=== PATIENT | female | born 1980 | race Caucasian/White ===

== ENCOUNTER 2022-01-21 16:36 | Emergency (ER) | payer MEDICARE, SELFPAY ==
[2022-01-21 16:45] VITALS: BP 102/66; PULSE 89; RESP 18; TEMP 36.4; O2SAT 100
--- NOTE | 2022-01-21 16:58 | ED.FEMALEGU ---
HPI - Female Genitourinary General Chief complaint: Urogenital-Female Stated complaint: Female Urogenital Source: patient History of Present Illness HPI Narrative: This is a 41 year old female that came in with dysuria and frequency and hesitancy ithe urination. Patient brought three grown adults in the room with her. Patient symptoms started today and she has not had any nausea vomiting , fever or flank pain. Patient denies taking anything for her symptoms . I had a discussion and asked patient if she wanted me to talk to her in front of these people and she agreed to have the conversation in front of the three other adults MD elicited complaint: dysuria Related Data Home Medications Medication Instructions Recorded Confirmed dicyclomine 10 mg capsule 10 mg PO BID PRN Cramps 03/24/21 01/21/22 duloxetine 20 mg capsule,delayed 20 mg PO DAILY 03/24/21 01/21/22 release (Cymbalta) loratadine 10 mg tablet (Claritin) 10 mg PO DAILY 03/24/21 01/21/22 omeprazole 40 mg capsule,delayed 40 mg PO DAILY 03/24/21 01/21/22 release Allergies Allergy/AdvReac Type Severity Reaction Status Date / Time naproxen [From Aleve] Allergy Severe Anaphylaxis Verified 01/21/22 16:39 penicillin G Allergy Severe Swelling Verified 01/21/22 16:58 of Lip/Tongue/Throat Penicillins Allergy Severe Swelling Verified 01/21/22 16:58 of Lip/Tongue/Throat levofloxacin AdvReac Mild Itching Verified 01/21/22 16:39 Sulfa (Sulfonamide AdvReac Mild Hives Verified 01/21/22 16:39 Antibiotics) Review of Systems Review of Systems: buring with urination All systems reviewed & are unremarkable except as noted in HPI and below [facility] Past Medical History Medical History Shoulder pain Family History Family History Other Family history of malignant neoplasm Family history of migraine headaches Social History Social History Smoking status: Never smoker Second hand tobacco smoke exposure: No Alcohol intake: current Substance use: current Substance use type: marijuana Other substance usage details: smokes marijuana 2-3x day Last use: 03/24/2021 Comments At time as signature, I have reviewed and agree with nursing past medical, social, surgical and family history. Please see nursing chart for further information. There is no relevant family history pertinent to the presenting complaint. We will Exam Narrative: Neuro: Alert and orientented RESP : Ease of rise and fall of chest wall, no respiratory distress abd soft and not distened no flank pain extremity range of motion within normal limits Course Course Emergency Course: no nitrates, positive leukocytes, positive blood Level of Care: Express Care Visit Vital Signs Vital signs: Vital Signs Temperature 97.6 F 01/21/22 16:45 Pulse Rate 89 01/21/22 16:45 Respiratory Rate 18 01/21/22 16:45 Blood Pressure 102/66 01/21/22 16:45 Pulse Oximetry 100 01/21/22 16:45 Oxygen Delivery Room Air 01/21/22 16:45 Temperature 97.6 F 01/21/22 16:45 Pulse Rate 89 01/21/22 16:45 Respiratory Rate 18 01/21/22 16:45 Blood Pressure 102/66 01/21/22 16:45 Pulse Oximetry 100 01/21/22 16:45 Oxygen Delivery Room Air 01/21/22 16:45 MDM - Female Genitourinary Differential Diagnosis Differential diagnosis: Likely urinary tract infection, cervicitis, vaginitis, cystitis and dysmenorrhea Lab Data Labs: Urine Glucose Negative Reference Range: Negative Urine Bilirubin Negative Reference Range: Negative Urine Ketone Negative Reference Range: Negative Urine Specific [place]
== END 2022-01-21 17:09 | disposition home or self-care (01) ==
PROVIDERS: Emergency Provider Nurse Practitioner Family; PCP Family Medicine
DX: N30.90 Cystitis, unspecified without hematuria (principal)
CPT/HCPCS: 81003; 87086; 99213; G0463

== ENCOUNTER 2024-10-20 13:15 | Outpatient (CLI) | payer MEDICARE, SELFPAY ==
--- OUTSIDE RECORDS SUMMARY | 2024-10-20 13:20 | XMS_ITS | Patient Health Record ---
Author Organization [facility] Address [address] [place] [address] Care Team Providers Care Engineer Systems Name Role Phone Hieu Morton Primary Care Provider [phone] [employer], [facility] Unavailable U navailable Allergies Allergen (clinical drug ingredient) Drug/Non Drug Allergy documented on EMR Reaction Allergy Type Onset Date Status Aleve Unknown Drug Allergy Active Doxycycline (Rosacea) hives Drug Allergy Active Levaquin Unknown Drug Allergy Active PENICILLIN Unknown Drug Allergy Active SULFA Unknown Drug Allergy Active Reason For Referral No Information Medications Medication SIG (Take, Route, Frequency, Duration) Notes Start Date End Date Status Claritin 10 MG 1 tablet Orally Once a day Active Loryna 3-0.02 MG 1 tablet Orally Once a day Active busPIRone HCl 5 MG 1 tablet Orally Twic e a day; Duration: 30 days Active HYDROcodone-Acetaminophen 10-325 MG 1 tablet as needed Orally every 6 hrs Not-Taking PriLOSEC OTC 20 MG 1 tablet Orally Once a day Active hydrOXYzine Pamoate 25 MG 1 capsule as n eeded Orally twice a day; Duration: 30 days Active Cymbalta 20 MG 1 capsule Orally twi ce a day; Duration: 30 days Active Social History Tobacco Use: Social History Observation Description Date Details (start date - stop date) Never Smoker NA - NA Tobacco Control (Standard) Question Answer Notes Tobacco use: Nonsmoker Problems Problem Type SNOMED Code ICD Code Onset Dates Problem Status W/U Status Risk Notes Problem Mild major depression, single episode (69487861) Major depressive disorder, single episode, mild (F32.0) Active confirmed Problem Generalized anxiety disorder (30329168) Generalized anxiety disorder (F41.1) Active confirmed Vital Signs Heart Rate 102 /min 03/18/2024 Respiratory Rate 16 /min 03/18/2024 Oximetry 98 % 03/18/2024 Blood pressure diastolic 68 mm Hg 03/18/2024 Height 66 in 03/18/2024 Blood pressure systolic 112 mm Hg 03/18/2024 Weight 141.6 lbs 03/18/2024 BMI 22.85 kg/m2 03/18/2024 Encounters Encounter Location Date Provider Diagnosis [address], [place] [address] 12/04/2023 Arif Habib [address] [address] 02/05/2024 Arif Habib [address] [address] 03/05/2024 Arif Habib [address] [address] 03/11/2024 Arif Habib Generalized anxiety disorder F41.[address] [address] 07/14/2024 Arif Habib [address] [address] 08/27/2024 Arif Habib Generalized anxiety disorder F41.[address] [address] 03/18/2024 Arif Habib Generalized anxiety disorder F41.[address] [address] 07/15/2024 Arif Habib Generalized anxiety disorder F41.[address] [address] 09/02/2024 Arif Habib Generalized anxiety disorder F41.[address] [address] 12/04/2023 Arif Habib Generalized anxiety disorder F41.1 Assessments Encounter Date Diagnosis (ICD Code) Assessment Notes Treatment Notes Treatment Clinical Notes Section Notes 12/04/2023 Generalized anxiety disorder (ICD-10 - F41.1) 03/11/2024 Generalized anxiety disorder (ICD-10 - F41.1) 03/18/2024 Generalized anxiety disorder (ICD-10 - F41.1) side effects discussed. Increase Cymbalta 20 mg BID. Add Vistaril PRN for anxiety 07/15/2024 Generalized anxiety disorder (ICD-10 - F41.1) side effects discussed. Continue Cymbalta 20 mg BID & Vistaril PRN for anxiety . Add Buspr 5 mg BID for anxiety. 09/02/2024 Generalized anxiety disorder (ICD-10 - F41.1) side effects discussed. Continue Cymbalta 20 mg BID & Vistaril PRN for anxiety . Continue Buspr 5 mg BID for anxiety. 08/27/2024 Generalized anxiety disorder (ICD-10 - F41.1) 12/04/2023 Other Side effects discussed. Continue Cymbalta Plan Of Treatment No Information Insurance Providers Payer Name Payer Address Payer Phone Subscriber Number Group Number Insured Name Patient Relationship to Insured Coverage Start Date Coverage End Date MEDICARE PART A [address] [place] [phone] [id number] Roxanna Conner Self - patient is the insured 2 Medical (General) History Surgical History Surgery Date(Month/Year) PARTIAL HYSTERECTOMY 08/2013
--- OUTSIDE RECORDS SUMMARY | 2024-10-20 13:20 | XMS_ITS | Clinical Summary ---
Author Organization [facility] Address [address] [place] [id number] Care Team Providers Care Hide Curer Name Role Phone Tanya Dorsey MD Primary Care Provider [phone] Social History Tobacco Use Types Packs/Day Years Used Date Smoking Tobacco: Never Assessed Comments No Sex and Gender Information Value Date Recorded Sex Assigned at Not on file Legal Sex Female 9:09 AM CDT Gender Identity Not on file Sexual Orientation Not on file Plan of Treatment Health Maintenance Due Date Last Done Comments Cervical Cancer Screening Pa p Smear (Age 30 to 64) Every 3 Years 1978 Colorectal Cancer Screening Colonoscopy (10 Years) 1978 Annual Physical 1981 Hepatitis C 1996 DTaP, Tdap and Td Vaccines ( 1 - Tdap) 1997 Hepatitis B Vaccines (1 of 3 - 19+ 3-dose series) 1997 Cervical Cancer Screening Pa p with HPV Testing (Age 30 to 64) Every 5 Years 2008 Cervical Cancer Screening wi th HPV 2008 COVID-19 Vaccine (2023-2 5 season) 2023 Mammogram Screening 04/14/2026 04/14/2024, 04/06/2023, 12/30/2021 Meningococcal B Vaccine Aged Out No l onger eligible based on patient's age to complete this topic Meningococcal Vaccine Aged Out No vidal anya eligible based on patient's age to complete this topic Pneumococcal Vaccine: Pediatrics (0 to 5 Years) and At-Risk Patients (6 to 49 Years) Aged Out No longer eligible b ased on patient's age to complete this topic RSV Immunizations Under 20 Months Aged Out No longer eligible b ased on patient's age to complete this topic Procedures Procedure Name Priority Date/Time Associated Diagnosis Comments MG SCREENING W ADAM STEFFANIE DIGI Routine 04/14/2024 1:12 PM CHIEF SERVICE OBSERVER Encounter for screening mammogram for malignant neoplasm of breast from Last 3 Months or Most Recently Relevant to Health Maintenance Results * MG SCREENING W ADAM STEFFANIE DIGI (04/14/2024 1:12 PM CHIEF SERVICE OBSERVER) Anatomical Region Laterality Modality Breast Bilateral Mammography 04/14/2024 1:40 PM CHIEF SERVICE OBSERVER Impressions 04/14/2024 1:41 PM CHIEF SERVICE OBSERVER ===== IMPRESSION: ===== 1. Stable mammographic appearance with no new findings to suggest malignancy in either breast. Assessment: ACR BI-RADS 1 - NEGATIVE Recommendation: 1:Routine Screening Bilateral Comments: Ordered By: CARLOS ROSENTHAL Interpreted By: Dustin Lucas MD, 04/14/2024 1:40 PM Narrative 04/14/2024 1:41 PM CHIEF SERVICE OBSERVER [facility] [place] [id number] Examination: Digital bilateral screening mammogram with 3D Tomosynthesis Exam Date/Time: 04/14/2024 12:52 PM Reason For Exam: ROUTINE SCREENING No prior breast procedures. No personal or family history of breast cancer. No current complaints. Comparison: Mammograms from 04/06/2023 12/30/2021 Technique: Digital screening mammography of both breasts was performed in addition to 3-D Tomosynthesis technique. This study was read with the assistance of a computer-aided detection system. Tissue density: The breasts are extremely dense, which lowers the sensitivity of mammography. Findings: No suspicious interval change from comparison exams. There is no new focal asymmetry, dominant mass lesion, area of skin thickening, or cluster of suspicious appearing calcifications in either breast to suggest malignancy. us Carlos Rosenthal [employer] [facility] Final Result from Last 3 Months or Most Recently Relevant to Health Maintenance Insurance MEDICARE Care Teams Hide Curer Relationship Specialty Start Date End Date Tanya Dorsey MD [address] [place] [address] PCP - General FAMILY PRACTICE 11/08/21
--- OUTSIDE RECORDS SUMMARY | 2024-10-20 13:20 | XMS_ITS | Data Portability ---
Author Organization [facility] , [facility] Address [address] [place] [address] Assessment No assessment recorded. Plan of Treatment Reminders Order Date Submit Date Provider Last Modified By Organization Details Last Modified Time Details Appointments None recorded. Lab testosteron e, free + total, serum 2021 022 [email or web address] [facility], [address] [place], [address], 2 14:27:34 lh + FSH, serum 2021 022 VALERIE [facility], [address] [place], [address], 2 18:56:35 TSH + free T4, serum 2021 022 [email or web address] [facility], [address] [place], [address], 2 15:50:19 prolactin, serum 2021 022 ckabat [facility], [address] [place], [address], 2 15:50:19 CBC w/ auto diff 2021 022 [email or web address], [address] [place], [address], 2 15:50:19 unlisted lab - vaginitis plus STD panel 2020 021 [facility], [address] [place], [address], 1 16:42:44 Referral None recorded. Procedures None recorded. Surgeries None recorded. Imaging MAMMO, screening, digital, bilateral 2023 024 VALERIE Not available 16:44:51 MAMMO, diagnostic, digital, bilateral - nipple discharge bilaterally 2021 022 [email or web address] Not available 2 13:37:42 Medication Orders estradiol 0.01% (0.1 mg/gram) vaginal cream 2023 024 [facility], [address] [facility] [address], [place], [address], 4 14:35:36 Loryna (28) 3 mg-0.02 mg tablet 2023 024 [facility], [address] [facility] [address], [place], [address], 4 14:36:23 Loryna (28) 3 mg-0.02 mg tablet 2022 023 [facility], [address] [place], [address], 3 15:29:21 drospirenon e 3 mg-ethinyl estradiol 0.02 mg tablet 2021 022 [id number] [address], [place], [id number], 2 20:02:07 Diflucan 150 mg tablet 2020 021 [email or web address] 0 [facility], [address] [place], [address], 3 12:37:05 Patient TargetsNo targets recorded. Patient Instructions Encounter Date Encounter Id Patient Instructions Last Modified By Organization Details Last Modified Time 07/05/2021 [id number] abuse/domestic violence education tcarrell Not available 07/05/2021 21:04:43 eating healthy foods: care instructions tcarrell Not available 07/05/2021 21:04:43 general health care education tcarrell Not available 07/05/2021 21:04:43 weight managemen t education tcarrell Not available 07/05/2021 21:04:43 mammogram: about this test tcarrell Not available 07/05/2021 21:04:43 07/24/2022 [id number] A healthy lifestyle: care instructions [id number] Not available 07/24/2022 15:29:12 exercise program : getting started [email or web address] Not available 07/24/2022 15:29:12 breast self-exam : care instructions [email or web address] Not available 07/24/2022 15:29:11 02/12/2024 [id number] atrophic vaginitis: care instructions bnotzke Not available 02/12/2024 14:35:28 mammogram: about this test bnotzke Not available 02/12/2024 14:35:28 mammogram screening patient instructions [email or web address] Not available 02/12/2024 14:35:28 control counseling bnotzke Not available 02/12/2024 14:35:28 Reason for Referral None Reported. Results Created Date Observation Date Name Description Value Unit Range Abnormal Flag Note LastModifiedBy Organization Detail LastModifiedTime 03/23/20 21 03/24/2021 VAGIN ITIS PLUS STD PANEL bacterial vaginosis BV neg negati ve [place], [address], 03/24/2021 16:42:44 03/23/20 21 03/24/2021 VAGIN ITIS PLUS STD PANEL abbey species C. spp POS negati ve positive [place], [address], 03/24/2021 16:42:44 03/23/20 21 03/24/2021 VAGIN ITIS PLUS STD PANEL abbey glabrata C. gla neg negati ve Not Available [address], [address], 03/24/2021 16:42:44 03/23/20 21 03/24/2021 VAGIN ITIS PLUS STD PANEL trichomonas vaginalis CV/TV TRICH neg negati ve Not Available [address], [address], 03/24/2021 16:42:44 03/23/20 21 03/24/2021 VAGIN ITIS PLUS STD PANEL chlamydia trachomatis CT neg negati ve If both Pap and Endoc ervic al swabs are colle cted, the Prese rvCyt Solut ion liqui d Pap speci men must be colle cted befor e the endoc ervic al swab speci men. Not Available [address], [address], 03/24/2021 16:42:44 03/23/20 21 03/24/2021 VAGIN ITIS PLUS STD PANEL neisseria gonorrhoeae GC neg negati ve If both Pap and Endoc ervic al swabs are colle cted, the Prese rvCyt Solut ion liqui d Pap speci men must be colle cted befor e the endoc ervic al swab speci men. Not Available [address], [address], 03/24/2021 16:42:44 01/12/20 22 01/13/2022 FSH AND LH FSH 10.8 mIU/m L normal Refer ence Range Folli cular Phase 2.5-1 0.2 Mid-c ycle Peak 3.1-1 7.7 Lutea l Phase 1.5- 9.1 Postm enopa usal 23.0- 116.3 Not Available [facility] [employer] [facility]! [facility] [address] [place], [address], 01/13/2022 18:56:35 01/12/20 22 01/13/2022 FSH AND LH LH 4.9 mIU/m L normal Refer ence Range Folli cular Phase 1.9-1 2.5 Mid-C ycle Peak 8.7-7 6.3 Lutea l Phase 0.5-1 6.9 Postm enopa usal 10.0- 54.7 Not Available [facility] [address] [place], [address], 01/13/2022 18:56:35 01/12/20 22 01/13/2022 TESTO STERO NE, TOTAL , MS testosterone , total, MS 17 NG/dL 2-45 For addit ional infor anay whitfield refer to https ://ed ucati on.qu estdi [employer]. com/f aq/To Elma maldonado LCMSM S (This link is being provi ded for infor negar nal/e ducat ional purpo ses only. ) (Note ) This test was devel oped and its raquel tical perfo rmanc e ab cteri stics have been deter mined by [employer]. It has not been clear ed or appro mateo by the FDA. This assay has been valid ated pursu ant to the CLIA regul ation s and is used for clini gonzalo purpo ses. MDF med fusio n [address] [facility] [address] [facility] [address] [phone] Antione doherty MD Not Available [facility] [address] [place], [address], 01/13/2022 18:56:35 04/14/20 24 04/14/2024 MAMMO , scree willi, tomos ynthe sis, bilat eral This is a summar y report . The comple te report is availa ble in the patien t's medica l record . If you cannot access the medica l record , please contac t the eric dutta for a detail ed fax or copy. [facility] Imagin g [address] [address] Examin ation: Digita l bilate ral screen ing mammog evelia with 3D Tomosy nthesi s Access ion: [id number] Exam Date/T kenny: 2023 12:52 PM Reason For Exam: ROUTIN E SCREEN ING No prior breast proced ures. No person al or family histor y of breast cancer . No curren t compla ints. Compar lian: Mammog mireya from 2022 022 Techni que: Digita l screen ing mammog jay of both breast s was perfor med in additi on to 3-D Tomosy nthesi s techni que. This study was read with the assist ance of a [employer] er-aid ed detect ion system . Tissue densit y: The breast s are extrem michael dense, which lowers the sensit ivity of mammog jay. Findin gs: No suspic ious interv al change from compar lian exams. There is no new focal asymme try, domina nt mass lesion , area of skin thicke willi, or cluste r of suspic ious appear ing calcif icatio ns in either breast to sugges t malign anupama. ===== IMPRES CHILO: ===== 1. Stable mammog raphic appear ance with no new findin gs to sugges t malign anupama in either breast . Assess ment: ACR BI-RAD S 1 - NEGATI VE Recomm endati on: 1:Rout ine Screen ing Bilate ral Commen ts: Ordere d By: CARLOS ROSENTHAL Electr onical ly Signed By: Warren salgado MD on 2023 1:41 PM Interp reted By: Warren salgado MD, 2023 1:40 PM VALERIE [facility] [address] [place], [address], 04/24/2024 11:02:31 04/14/20 24 04/14/2024 MAMMO , scree willi, digit al, bilat eral No observ ation record ed. VALERIE Not Available 2024 11:02:31 Result Notes Documentation Provider Name and Address Organization Details Recorded Time Mammo, Screening, Tomosynthesis, Bilateral : This is a summary report. The complete report is available in the patient's medical record. If you cannot access the medical record, please contact the sending organization for a detailed fax or copy. [facility] [place] [address] Examination: Digital bilateral screening mammogram with 3D [...] calcifications in either breast to suggest malignancy. ===== IMPRESSION: ===== 1. Stable mammographic appearance with no new findings to suggest malignancy in either breast. Assessment: ACR BI-RADS 1 - NEGATIVE Recommendation: 1:Routine Screening Bilateral Comments: Ordered By: CARLOS ROSENTHAL Interpreted By: Dustin Lucas MD, 04/14/2024 1:40 PM ANGEL Villalobos [address] [place] [address], [phone], [facility] 04/14/2024 19:03:28 Problems Name Problem SNOMED Code Status Onset Date Resolution Date Notes Provider Name and Address Organization Details Recorded Time Uterine prolapse 03793613 Completed 201605/16/2019 Uterine prolapse ; Progress : Stable Added By: Jesus Vance Add to Current Problems : NO ProblemS tatus: Resolve Not Available [facility] 17:59:24 Pelvic and perineal pain [id number] Completed 201903/19/2020 Pelvic and perineal pain; Progress : Stable Added By: Pilar Hamlin Add to Current Problems : NO ProblemS tatus: Resolve Not Available [facility] 2 17:59:[address] Concept Completed 201604/11/2017 Encounte r for follow-u p examinat ion after complete d treatmen t for conditio ns other than malignan t neoplasm ; Progress : Stable Added By: Mary Lou Jackman Add to Current Problems : NO ProblemS tatus: Resolve Not Available [facility] 2 17:59:21 Vaginola bial hernia Active 2015 Other specifie d noninfla mmatory disorder s of vagina; Progress : Stable Added By: Carol Madera Add to Current Problems : NO ProblemS tatus: Resolve Vaginal Discharg e; Location : None Progress : Stable Added By: Roxanne Rosenthal Add to Current Problems : YES ProblemS tatus: Current Not Available [facility] 2 17:59:23 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; Progress : Stable Added By: Barbra Sheehan Add to Current Problems : NO ProblemS tatus: Resolve Not Available [facility] 2 17:59:22 Acne 85941460 Completed 201503/19/2020 Cystic acne; Progress : Stable Added By: Jesus Vance Add to Current Problems : NO ProblemS tatus: Resolve Acne vulgaris ; Progress : Stable Added By: Jesus Vance Add to Current Problems : NO ProblemS tatus: Resolve Cystic acne; Location : None Progress : Stable Added By: Jesus Vance Add to Current Problems : YES ProblemS tatus: Current Not Available [facility] 2 17:59:23 Menopaus e present [id number] Completed 201701/25/2018 Menopaus al and female climacte kandis states; Progress : Stable Added By: Jesus Vance Add to Current Problems : NO ProblemS tatus: Resolve Not Available [facility] 2 17:59:22 Vulvovag initis 09596114 Completed 201603/19/2020 Other specifie d inflamma tion of vagina and vulva; Progress : Stable Added By: Roxanne Rosenthal Add to Current Problems : NO ProblemS tatus: Resolve Vagintiu s Unspecif ied; Location : None Progress : Stable Added By: Roxanne Rosenthal Add to Current Problems : YES ProblemS tatus: Current Not Available [facility] 2 17:59:22 Vaginiti s and vulvovag initis Completed 201610/22/2016 Vaginiti s; Location : None Progress : Stable Added By: Naomi Clement Add to Current Problems : YES ProblemS tatus: Resolve Vagintiu s Unspecif ied; Progress : Stable Added By: Roxanne Rosenthal Add to Current Problems : NO ProblemS tatus: Resolve; Start Date : 08/12/19 17 Bacte rial vaginosi s; Progress : Stable Added By: Jesus Vance Add to Current Problems : NO ProblemS tatus: Resolve; Start Date : 06/20/19 17 Not Available [facility] 2 17:59:24 Incomple te uterovag inal prolapse [id number] Active 2016 Incomple te uterovag inal prolapse ; Progress : Stable Added By: Jesus Vance Add to Current Problems : NO ProblemS tatus: Resolve Uterine prolapse ; Location : None Progress : Stable Added By: Jesus Vance Add to Current Problems : YES ProblemS tatus: Current Not Available [facility] 2 17:59:22 Dysuria 03399117 Completed 201609/08/2016 Dysuria; Location : None Severity : Moderate Progress : Stable Added By: Mary Lou Jackman Add to Current Problems : YES ProblemS tatus: Resolve Dysuria; Severity : Moderate Progress : Stable Added By: Leslee Fraser Add to Current Problems : YES ProblemS tatus: Current Painful micturit ion, unspecif ied; Severity : Moderate Progress : Stable Added By: Mary Lou Jackman Add to Current Problems : NO ProblemS tatus: Resolve Not Available [facility] 1 12:56:10 Surgical follow-u p - normal 108098530 Completed 201604/11/2017 Follow-u p exam followin g surgery; Location : None Severity : Moderate Progress : Stable Added By: Mary Lou Jackman Add to Current Problems : YES ProblemS tatus: Resolve Not Available [facility] 1 05:03:43 Leukorrh ea 058492378 Completed 201505/16/2019 Vaginal Discharg e; Progress : Stable Added By: Roxanne Rosenthal Add to Current Problems : NO ProblemS tatus: Resolve Not Available [facility] 2 17:59:22 Uses combined oral contrace ption 374205297 Completed 201903/19/2020 Encounte r for initial prescrip tion of contrace ptive pills; Progress : Stable Added By: Pilar Hamlin Add to Current Problems : NO ProblemS tatus: Resolve Not Available [facility] 2 17:59:23 Increase d frequenc y of urinatio n 459118347 Active 2020 Frequenc y of micturit ion; Progress : Stable Added By: Angela Steele Add to Current Problems : YES ProblemS tatus: Current Not Available [facility] 2 17:59:23 Postoper ative follow-u p visit Completed 201604/11/2017 Follow-u p exam followin g surgery; Location : None Progress : Stable Added By: Mary Lou Jackman Add to Current Problems : YES ProblemS tatus: Resolve Not Available [facility] 2 17:59:22 Menopaus al symptom 05464485 Completed 201701/25/2018 Menopaus al Symp; Progress : Stable Added By: Jesus Vance Add to Current Problems : NO ProblemS tatus: Resolve Not Available [facility] 2 17:59:23 Dysuria 12990701 Active 2020 Dysuria; Progress : Stable Added By: Leslee Fraser Add to Current Problems : YES ProblemS tatus: Current Dysuria; Location : None Progress : Stable Added By: Mary Lou Jackman Add to Current Problems : YES ProblemS tatus: Resolve; Start Date : 07/11/19 17 Painf ul micturit ion, unspecif ied; Progress : Stable Added By: Mary Lou Jackman Add to Current Problems : NO ProblemS tatus: Resolve; Start Date : 07/11/19 17 Not Available [facility] 2 17:59:24 Problem Notes None recorded. Procedures Surgical History Date Name Laterality Status Provider Name and Address Organization Details Recorded Time 03/16/20 23 Most Recent Mammogram completed Ivory Atkinson [facility] 02/12/2024 14:13:25 07/28/19 Date of Last Pap Smear completed Zara Fraser [facility] 07/24/2022 15:14:04 Tlh uterus 250 g or less completed Jesus Vance MD [address] [place], [address] 01/11/2022 16:48:27 ligation of fallopian tube completed Jessie Icenogle [facility] 03/23/2021 14:38:39 Hysteroscopy ablation completed Jessie Icenogle [facility] 03/23/2021 14:38:51 Colonoscopy completed Jessie Icenogle [facility] 07/05/2021 19:10:24 Sterilization completed Jessie Icenogle [facility] 07/05/2021 19:10:24 Imaging Results None recorded. Procedure Notes None recorded. Medical Equipment None Reported. Allergies Allergen ID Allergen Name Allergen Category Reaction Reaction Severity Criticality Documentation Date Start Date Code Code System Note Provider Name and Address Organization Details Recorded Time 237210 Product containin g penicilli n (product) medicatio n Not available Not available Not available 02/04/20212015 36710 8001 SNOMED Sever ity: Moder ate; Not Available [facility] 01:14:35 535711 Substance with sulfonami de structure and antibacte rial mechanism of action (substanc e) medicatio n Not available Not available Not available 02/04/20212015 92920 8003 SNOMED Sever ity: Moder ate; Not Available [facility] 01:14:35 789622 Levaquin medicatio n Not available Not available Not available 02/04/20212015 16202 2 RxNorm Sever ity: Moder ate; Not Available [facility] 01:14:35 740860 Aleve medicatio n Not available Not available Not available 02/04/20212015 42625 1 RxNorm Sever ity: Moder ate; Not Available [facility] 1 01:14:35 255363 cat dander environme nt Not available Not available Not available 07/05/2021 69016 CHUYITA Ricci null, [facility] 2 19:10:23 Medications Name Sig Start Date Stop Date Status Note LastModified by Organization Details LastModified Time terconazo le 0.4 % vaginal cream insert 1 applicat orful by vaginal route once daily at bedtime for 7 days 06/09 completed terconaz ole 0.4 % Vaginal Cream RxNorm: 566550 Allow Substitu tion: True Refill Denied: No Edited by: Brandee Shahid ) on 06/09/19 Stopped by: Brandee Shahid ) on 06/09/19 Not Available Not Available Not Available doxycycli ne hyclate 100 mg capsule TAKE 1 CAPSULE BY MOUTH TWICE DAILY FOR 10 DAYS 07/05 completed Not Available Not Available Not Available Topamax 25 mg tablet Take 1 tablet(s ) by mouth bid 06/09 completed Topamax 25mg Tablet RxNorm: 512903 Allow Substitu tion: True Refill Denied: No Edited by: Brandee Shahid ) on 06/09/19 Stopped by: Brandee Shahid ) on 06/09/19 Not Available Not Available Not Available fluconazo le 150 mg tablet Take 1 tab by mouth once. Repeat in 72 hours 01/19 completed Not Available Not Available Not Available metronida zole 0.75 % (37.5 mg/5 gram) vaginal gel insert 1 applicat orful (37.5 mg) by vaginal route 1 times per day in the evening for 7 days 06/09 completed metroNID AZOLE 0.75 % Vaginal Gel RxNorm: 325439 Allow Substitu tion: True Refill Denied: No Edited by: Brandee Shahid ) on 06/09/19 Stopped by: Brandee Shahid ) on 06/09/19 Not Available Not Available Not Available famotidin e 40 mg tablet TAKE 1 TABLET BY MOUTH ONCE DAILY AT BEDTIME active Not Available Not Available No t Available Pyridium 200 mg tablet take 1 tablet (200 mg) by oral route 2 times per day after meals for 3 days 06/09 completed Pyridium 200 mg oral tablet RxNorm: 0229561 Allow Substitu tion: True Refill Denied: No Edited by: Brandee Shahid ) on 06/09/19 Stopped by: Brandee Shahid ) on 06/09/19 20 Not Available Not Available Not Available metronida zole 500 mg tablet 07/05 completed Not Available Not Available Not Available hydrocodo ne 10 mg-acetam inophen 325 mg tablet 11/26 completed Hydrocod one/Acet aminophe n 10mg/325 mg Tablet RxNorm: 160819 Allow Substitu tion: True Refill Denied: No Refill DateOccu rred: 01/27/20 16 Not Available Not Available Not Available omeprazol e 40 mg capsule,d elayed release TAKE 1 CAPSULE BY MOUTH ONCE DAILY active Not Available Not Available No t Available ciclopiro x 8 % topical solution APPLY SOLUTION TOPICALL Y EVERY DAY AT BEDTIME. active Not Available Not Available No t Available Estrostep Fe-28 1-20 (5)/1-30( 7)/1mg-35 mcg(9) tablet Take 1 tablet(s ) by mouth daily as directed . 01/31 completed Estroste p Fe Triphasi c Tablet Allow Substitu tion: True Refill Denied: No Not Available Not Available Not Available hydrocodo ne 7.5 mg-acetam inophen 325 mg tablet 11/26 completed Hydrocod one/Acet aminophe n 10mg/325 mg Tablet RxNorm: 355435 Allow Substitu tion: True Refill Denied: No Refill DateOccu rred: 01/27/20 16 Not Available Not Available Not Available cephalexi n 500 mg capsule Take 1 capsule twice a day by oral route with meals for 7 days. 01/19 completed Not Available Not Available Not Available pantopraz ole 40 mg tablet,de layed release 02/11 completed Not Available Not Available Not Available nitrofura ntoin macrocrys celeste 100 mg capsule take 1 capsule (100 mg) by oral route 4 times per day with food for 10 days 06/09 completed nitrofur antoin macrocry stal 100 mg oral capsule RxNorm: 2878308 Allow Substitu tion: True Refill Denied: No Edited by: Brandee Shahid ) on 06/09/19 Stopped by: Brandee Shahid ) on 06/09/19 Not Available Not Available Not Available buspirone 7.5 mg tablet take 1 tablet (7.5 mg) by oral route 2 times per day 03/19 completed busPIRon e 7.5 mg oral tablet RxNorm: 895118 Allow Substitu tion: False Refill Denied: No Refill DateOccu rred: 06/09/19 Edited by: Troy Tam ) on 03/19/20 Stopped by: ivelisse madrigal(Troy Daugherty ) on 03/19/20 Not Available Not Available Not Available clindamyc in 2 % vaginal cream insert 1 applicat orful by vaginal route at bedtime twice weekly 03/19 completed clindamy umang phosphat e 2 % Vaginal Cream RxNorm: 991657 Allow Substitu tion: True Refill Denied: No Edited by: ivelisse madrigal(Brandon es Tartay ) on 03/19/20 Stopped by: ivelisse madrigal(Troy Daugherty ) on 03/19/20 Not Available Not Available Not Available Ditropan XL 10 mg tablet,ex tended release One tablet daily 08/11 completed Ditropan XL 10mg Tablets, Extended Release RxNorm: 649139 Allow Substitu tion: True Refill Denied: No Not Available Not Available Not Available estradiol 0.01% (0.1 mg/gram) vaginal cream Insert 1 g every day by vaginal route at bedtime for 14 days. 2023 active Not Available Not Available Not Avai lable hydrocort isone 2.5 % topical ointment Apply thin film to affected area qid 04/08 completed Hydrocor tisone 2.5% Topical Ointment Allow Substitu tion: True Refill Denied: No Not Available Not Available Not Available ondansetr on 4 mg disintegr ating tablet 07/21 completed Not Available Not Available Not Available dicyclomi ne 10 mg capsule TAKE 1 CAPSULE BY MOUTH 4 TIMES A DAY NEEDED ABDOMINA L PAIN 01/11 completed Not Available Not Available Not Available Ortho Tri-Cycle n (28) 0.18 mg(7)/0.2 15mg(7)/0 .25 mg(7)-0.0 35 mg tablet Take 1 tablet(s ) by mouth daily as directed . 08/11 completed Ortho Tri-Cycl en 28 Triphasi c Tablet Allow Substitu tion: True Refill Denied: No Not Available Not Available Not Available nitrofura ntoin monohydra te/macroc rystals 100 mg capsule Take 1 capsule twice a day by oral route for 7 days. 02/11 completed Not Available Not Available Not Available duloxetin e 20 mg capsule,d elayed release TAKE 1 CAPSULE BY MOUTH ONCE DAILY active Not Available Not Available No t Available Cymbalta 30 mg capsule,d elayed release 07/24 completed Cymbalta 30 mg oral capsule, delayed release (enteric coated) RxNorm: 709310 Allow Substitu tion: True Refill Denied: No Refill DateOccu rred: 01/24/20 17 Edited by: vaishnavi schneider([facility] Barbra ) on 03/04/20 19 Stopped by: vaishnavi schneider([facility] ) on Not Available Not Available Not Available Diflucan 1 p.o. now and 1 p.o. tomorrow 02/01 completed Diflucan 150mg Tablet RxNorm: 755383 Allow Substitu tion: True Refill Denied: No Not Available Not Available Not Available Bentyl 08/11 completed Bentyl 10mg Capsules RxNorm: 861160 Allow Substitu tion: True Refill Denied: No Refill DateOccu rred: 01/27/20 16 Not Available Not Available Not Available Flagyl Take 1 tablet(s ) by mouth bid for 7 days 06/12 completed Flagyl 500mg Tablet RxNorm: 188168 Allow Substitu tion: True Refill Denied: No Not Available Not Available Not Available Macrobid 1 capsule BID x 7 days 07/04 completed Macrobid 100mg Capsules RxNorm: 127572 Allow Substitu tion: True Refill Denied: No Not Available Not Available Not Available Ditropan XL One tablet daily 06/12 completed Ditropan XL 10mg Tablets, Extended Release RxNorm: 317859 Allow Substitu tion: True Refill Denied: No Not Available Not Available Not Available Gina ODT 2015 active Gina ODT RxNorm: [id number] Allow Substitu tion: True Refill Denied: No Refill DateOccu rred: 01/27/20 16 Edited by: vaishnavi schneider([facility] ) on 03/04/20 19 Stopped by: vaishnavi schneider([facility] ) on Not Available Not Available Not Available Loryna (28) 3 mg-0.02 mg tablet Take 1 tablet every day by oral route. active Not Available Not Available No t Available hydrocodo ne 2.5 mg-acetam inophen 325 mg tablet 11/26 completed Hydrocod one/Acet aminophe n 10mg/325 mg Tablet RxNorm: [id number] Allow Substitu tion: True Refill Denied: No Refill DateOccu rred: 01/27/20 16 Not Available Not Available Not Available Irma 08/11 completed Irma RxNorm: [id number] Allow Substitu tion: True Refill Denied: No Refill DateOccu rred: 06/12/19 17 Not Available Not Available Not Available Vitals Date Recorded Body height Body mass index (BMI) Body weight Body temperature Systolic And Diastolic Provider Name and Address Organization Details Last Updated DateTime 07/05/2021 170.18 cm 24.7 kg/m2 42265.5 9 g 96 [degF] 122/80 mm[Hg] Jessiejayjay Ricci [email or web address] 03/22/202 2 19:09:05 Date Recorded Body height Body mass index (BMI) Body weight Systolic And Diastolic Provider Name and Address Organization Details Last Updated DateTime 07/24/2022 170.18 cm 23.6 kg/m2 04640.29 g 120/76 mm[Hg] Zara Fraser [facility] [email or web address] IV 07/24/2022 15:12:36 Date Recorded Body height Body mass index (BMI) Body weight Body temperature Systolic And Diastolic Provider Name and Address Organization Details Last Updated DateTime 01/11/2022 170.18 cm 24.2 kg/m2 01420.6 6 g 97.6 [degF] 112/72 mm[Hg] Soledad Taylister [facility] [email or web address] IV 2 15:30:53 Date Recorded Body weight Body mass index (BMI) Body height Body temperature Systolic And Diastolic Provider Name and Address Organization Details Last Updated DateTime 02/12/2024 44838.49 g 22.9 kg/m2 170.18 cm 97.6 [degF] 110/68 mm[Hg] Ivory Wilderell [facility] [email or web address] IV 14:15:19 Date Recorded Body height Body mass index (BMI) Body weight Body temperature Systolic And Diastolic Provider Name and Address Organization Details Last Updated DateTime 03/23/2021 170.18 cm 25.5 kg/m2 38250.5 6 g 97.3 [degF] 116/80 mm[Hg] Jessie Ricci [employer] IV 14:37:45 Social History Question Answer Notes LastModified by Organizat ion Details LastModified Time Tobacco Smoking Status Never Smoker [facility]ie [facility] 07/05/2021 19:10:24 Are You Blind Or Do You Have Difficulty Seeing? No [email or web address] Information not available 02/12/2024 Are You Deaf Or Do You Have Serious Difficulty Hearing? No [email or web address] Information not available 02/12/2024 What Type Of Diet Are You Following? REGULAR Information not available 07/05/2021 Which Illicit Or Recreational Drugs Have You Used? Marijuana Information not available 07/05/2021 How Many Children Do You Have? 2 Information not available 03/23/2021 What Is Your Relationship Status? Information not available 03/23/2021 Are You Sexually Active? Yes Information not available 03/23/2021 Sex: Female Functional Status Question Answer Note LastModified by Organizat ion Details LastModified Time Do you use any illicit or recreational drugs? Yes [email or web address] Information not available 02/12/2024 What is your level of alcohol consumption? None Information not available 07/05/2021 Are you currently employed? No [email or web address] Information not available 02/12/2024 Do you or have you ever used e-cigarettes or vape? Never used electronic cigarettes Information not available 07/05/2021 What is your exercise level? Occasional Information not available 07/05/2021 Mental Status None recorded. Family History Relationship Description Onset Age of this Age Resolved Age Notes LastModified by Organization Details LastModified Time Father No current problems or disability [email or web address] Not available 07/05 19:10:23 Mother No current problems or disability [email or web address] Not available 07/05 19:10:23 Mother Depressive disorder [email or web address] Not available 2021 19:10:23 Maternal Grandmother Malignant neoplastic disease [email or web address] Not available 2021 19:10:23 Brother Depressive disorder [email or web address] Not available 2021 19:10:23 Medical History Condition Response Depression Y GERD (reflux) Y Anxiety Disorder Y Arthritis Y Seasonal allergies Y IBS (Irritable Bowel Syndrome) Y Fibromyalgia Y Gynecological History Statement/Question Response Date of last HPV 07/27/2021 Date of LMP 03/05/2014 Date of Last Pap Smear 07/27/2021 Most Recent Mammogram 03/16/2023 Current Control Method BCPs Age at Menarche 12 Obstetrics History GPAL:G 2 P 2 0 0 2 Type Value Full Term 2 Living 2 Total 2 Past Encounters Encounter ID Performer Location Encounter Start Date Encounter Closed Date Diagnosis/Indication Diagnosis SNOMED-CT Code Diagnosis ICD10 Code Diagnosis Note [id number] JOEY NARA POZO CNM [facility] [address] [facility] [place] [address] 03/23/2021 14:33:00 03/23/2021 22:34:28 Vaginal discharge 276927356 N89.8 N76.0 Discussed recurrent yeast infection. Patient states she has gotten frequent yeast infections and BV for years but recently she feels that she cannot completely eliminate yeast symptoms. Declines recommende d A1C for r/o DM. Discussed recurrent yeast treatments . Opting for recurrent yeast diflucan prescripti on. Referral to U vulvar care for continued recurrence . Screening for disorder 032338113 Z11.3 N89.9 [id number] JOEY NARA POZO CNM [facility] [address] [place] [address] 07/05/2021 18:08:17 07/05/2021 20:03:23 Gynecologic examination 94558376 Z01.419 40 y.o. here for annual exam.- Pap not necessary. Cervix absent post hyst r/t prolapse.- uses JARET for acne per Rajiv. No contraindi cations identified at this visit. renewed. Stop immediatel y and report for care if ACHES present.- Routine labs done with PCP- Mammo never done, needs diagnostic mammo r/t galactorre a- Depression screen NEG- RTO for annual or PRN Screening for malignant neoplasm of breast 016383571 Z12.39 discussed possible etiology including cymbalta possibly causing inc prolactin. dx mammogram and labs, then FU with Rajiv in 4-6 weeks. [id number] Jesus Vance MD [facility] [address] [place] [phone] 01/11/2022 14:57:35 01/24/2022 09:25:52 Reduced libido 3125003 R68.82 feels numb and would like tot ry something as being on cymbalta helps but feels lack of drive and numbness and takes long to have O [id number] ANGEL Villalobos [address] [address] 07/24/2022 15:06:15 07/24/2022 15:29:49 Gynecologic examination 64551766 Z01.419 42y.o. here for annual exam. - Mammo due - RTO for annual or PRN Depression screening 171 428403 Z13.31 PHQ9: Negative. Pt educated on normal scoring. No further management needed. Screening mammography of bilateral breasts 2091628820 51668 Z12.31 Client advised to perform self-breas t exams and report any changes. Contracept ion care management 117938618 Z30.9 Pt educated on risks Vs benefits of use, and reviewed ACHES symptoms. Importance of daily administra tion within the same 30 minute time frame reinforced to pt, and on use of condoms or abstinence if dosing schedule is interrupte d. Refills sent. Plan to F/U PRN or at next WWE. [id number] [facility] [address] [place] [address] 02/12/2024 14:07:29 02/12/2024 14:59:05 Screening mammography of bilateral breasts 3966106550 19184 Z12.31 Pt educated on breast cancer screening guidelines , and discussed recommenda tion for scheduling imaging at hospital of her choice. Reviewed recommenda tion to have imaging done at same facility if possible as previous screenings . Pt states understand ing of POC. Contracept ion education 688214579 Z30.09 Contracept sara counseling : Discussed options including OCPs, NuvaRing, Nexplanon, hormonal and copper IUDs. Discussed risks, efficacy, non contracept sara benefits, and side effects of each option, including risk of VTE with hormonal contracept ion and uterine perforatio n, expulsion, infection with IUD. Depression screening 171 692356 Z13.31 Surveillan ce of contraception 653271326 Z30.40 COUNSELING was provided today regarding the following: - CHC use was discussed with the patient in detail including CHC risks, benefits, side effects, and ACHES.- Back-up contracept ion was encouraged if the patient misses pills or takes antibiotic s.- Condoms should be used for STI prevention .- No absolute contraindi cations to JARET use were identified . Reviewed CHCs based on age Category 2. Pt states she is aware and wants to continue pills at this time. -Combined Oral Contracept ion (JARET) with levonorges trel or norethiste suni should be considered first-line JARET preparatio ns for women over 40 due to the potentiall y lower VTE risk compared to formulatio ns containing other progestoge ns-JARET with 3 0 g ethinylest radiol should be considered first-line JARET preparatio ns for women over 40 due to the potentiall y lower risks of VTE, cardiovasc ular disease and stroke compared to formulatio ns containing higher doses of estrogen(J UNEL fe) - Pt uses JARET for acne per Rajiv. No contraindi cations identified at this visit. renewed. Stop immediatel y and report for care if ACHES present.Re commended pt switch to just estrogen due to increased risk of breast cancer, declines at thist kenny. Perimenopa usal atrophic vaginitis 728573520 N95.2 Pt reports vaginal dryness, she also reports frequent UTI's.Will try estrogen cream for both. If UTI's remain, will consider Urology referral. Recurrent urinary tract infection 602677200 N39.0 Health Concerns Section Related Observation LastModified by Organization Detai ls LastModified Time None Recorded Concern Status LastModified by Organization Details LastModified Time None Recorded Advance Directives Directive None Recorded Payers Insurance Date Sequence Insurance Name Policy Number Policy Singleton Covered Member ID Singleton Member ID Guarantor Name 02/09/2024 1 [place] Roxanna Kathe Ubaldo [id number] Roxanna Conner 02/09/2024 2 [place] Roxanna Viveros [id number] Roxanna M Ubaldo Notes Date Note Type Note Provider Name and Address Organization Details Recorded Time 03/23/2021 text/html Vaginal/Vulvar ProblemReported bypatient.Associated Symptoms:vaginal itching;vaginal irritation;vaginal pain recurrent yeast infections JOEY POZO, NEFTALY [address] [place], [address], [facility] [email or web address] 03/23/2021 22:34:17 07/05/2021 text/html Annual GYNReport ed bypatient.Menstrual cycle:Normal menses Urinary symptoms:No hematuria; No incontinence Vulva:No genital lesion Vagina:Normal vaginal discharge Breast:No breast pain; No breast lump; No nipple discharge Sexual complaints:No sexual complaints; No pain during intercourse; Normal libido Menopausal Symptoms:No menopausal symptoms; Normal vaginal lubrication Psychological symptoms:No depression; No anxiety; No PMDD Preventive measures:Encourage self breast examination; Encourage regular exercise; Encourage no tobacco use; Encourage regular mammograms starting age 40; cervix surgically absent JOEY POZO CNM [address] [place], [address], [facility] [email or web address] IV 07/05/2021 20:03:15 01/11/2022 text/html Breast ProblemReported bypatient.Reason for visitBreast discharge Quality:asymptomatic; no bloody discharge; no brown discharge; no milky discharge; no yellow-clear discharge; no yellow-green discharge; non-tender; improving; no mass Context:prior mammogram normal; performs breast self-examination Jesus Vance MD [address] [place], [address], [facility] [email or web address] IV 01/15/2022 17:31:57 07/24/2022 text/html Annual GYNReport ed bypatient.Menstrual cycle:s/p hyst Urinary symptoms:No hematuria; No incontinence Vulva:No genital lesion Vagina:Normal vaginal discharge Breast:No breast pain; No breast lump; No nipple discharge Sexual complaints:No sexual complaints; No pain during intercourse; Normal libido Menopausal Symptoms:No menopausal symptoms; Normal vaginal lubrication Psychological symptoms:No depression; No anxiety; No PMDD Roxanna is here for her AEX. She is doing well on her OCP for her acne and mood swings. Her hx is notable for a hysterectomy. She is due for her mammogram. She denies STI testing. ANGEL Villalobos [address] [place], [address], [facility] [email or web address] IV 07/24/2022 15:29:40 02/12/2024 text/html Annual GYNReport ed bypatient.History:no gynecologic complaints Menstrual cycle:s/p hyst Urinary symptoms:No hematuria; No incontinence Vulva:No genital lesion Vagina:Normal vaginal discharge Breast:No breast pain; No breast lump; No nipple discharge Sexual complaints:No sexual complaints; No pain during intercourse; Normal libido Menopausal Symptoms:No menopausal symptoms; Normal vaginal lubrication Psychological symptoms:No depression; No anxiety; No PMDD Roxanna is here for med refill. SHe has had a partial hysterectomy and is currently taking BCPs. She has no concerns today MARIA LUISA PENNY ANGEL- [address] [facility], [place], [address], [facility] 02/12/2024 14:36:43 OBGyn Episode Ob Episode Information Episode Created Date Number of Fetuses Patient Bloodtype Patient rh Status Prepregnancy Weight lbs Domestic Partner Domestic Partner Phone Father Name Dental Cream Maker Status 03/23/20 21 1 CLOSED Fetus Data First Name Last Name Admitted to NICU Weight (g) Sex Living Outcome Pediatric Complications Fetus ID Race Codes Race Delivery Type Full Term [id number] Vlad Calculation Initial Vlad Date Initial Exam Date Initial Exam Provider Initial Ultrasound Date Last Menstrual Period Date Ultra Sound Weeks Gestation 0 Eighteen To Twenty Week Vlad Update Ultra Sound Date Fundal Height At Umbil Quickening Date Ultra Sound Latest Weeks Gestation Final Vlad Confirmed By Final Vlad Confirmed Date Final Vlad Date Ultra Sound Latest Days Gestation 0 0 Menstrual History Last Menstrual Date Menses Monthly On Bcp Conception Prior Menses Frequency Hcg Plus Date Menarche Onset Age Delivery Information Delivery Date Delivery Type Labor Anesthesia Weeks Gestation Incision Type Labor Labor Length Hrs Delivered By Post Complications Tubal Sterilization Discharge Date Comments 0 Discharge Information Feeding Method Contraceptive Method Maternal HG B and HCT Levels Ob Episode Information Episode Created Date Number of Fetuses Patient Bloodtype Patient rh Status Prepregnancy Weight lbs Domestic Partner Domestic Partner Phone Father Name Dental Cream Maker Status 03/23/20 21 1 CLOSED Fetus Data First Name Last Name Admitted to NICU Weight (g) Sex Living Outcome Pediatric Complications Fetus ID Race Codes Race Delivery Type Full Term [id number] Vlad Calculation Initial Vlad Date Initial Exam Date Initial Exam Provider Initial Ultrasound Date Last Menstrual Period Date Ultra Sound Weeks Gestation 0 Eighteen To Twenty Week Vlad Update Ultra Sound Date Fundal Height At Umbil Quickening Date Ultra Sound Latest Weeks Gestation Final Vlad Confirmed By Final Vlad Confirmed Date Final Vlad Date Ultra Sound Latest Days Gestation 0 0 Menstrual History Last Menstrual Date Menses Monthly On Bcp Conception Prior Menses Frequency Hcg Plus Date Menarche Onset Age Delivery Information Delivery Date Delivery Type Labor Anesthesia Weeks Gestation Incision Type Labor Labor Length Hrs Delivered By Post Complications Tubal Sterilization Discharge Date Comments 8 Discharge Information Feeding Method Contraceptive Method Maternal HG B and HCT Levels
[2024-10-20 14:26] LABS: Hematocrit 42.5 % (37.0-47.0); Hemoglobin 13.9 g/dL (12.0-15.0); Immature Granulocyte Percent A 0.3 % (0-0.5); Lymphocytes Absolute Auto 3.59 K/mm3 (0.9-3.2); Mean Corpuscular HGB Conc 32.7 g/dl (32-36); Mean Corpuscular Hemoglobin 29.8 pg (26-34); Mean Corpuscular Volume 91.0 fl (80-100); Nucleated Red Blood Cells Absolute Auto 0.000 K/mm3 (0.0-0.012); Nucleated Red Blood Cells Perc 0.0 % (0.0-0.2); Platelet Count Result 375 k/mm3 (150-375); Red Blood Count 4.67 M/mm3 (4.2-5.4); White Blood Count 11.1 K/mm3 (4.5-10.0)
[2024-10-20 15:10] LABS: Alanine Aminotransferase 18 U/L (6-35); Albumin Level 4.3 g/dL (3.5-5.1); Alkaline Phosphatase 78 U/L (38-126); Anion Gap 9 mmol/L (4-12); Aspartate Amino Transferase 30 U/L (14-36); Bilirubin,Total 0.3 mg/dL (0.2-1.3); Blood Urea Nitrogen 9 mg/dL (7-17); Calcium 9.5 mg/dL (8.4-10.2); Carbon Dioxide 25 mmol/L (22-30); Chloride 105 mmol/L (98-107); Cholesterol 303 mg/dL (0-200); Estimated Glomerular Filt Rate > 60; Glucose 91 mg/dL (65-110); HDL Direct 70 mg/dL; Potassium 4.3 mmol/L (3.4-5.0); Sodium 139 mmol/L (137-145); Total Protein 7.9 g/dL (6.3-8.2); Triglycerides 291 mg/dL (<150)
[2024-10-20 15:26] LABS: Free T4 Free Thyroxine 0.80 ng/dL (0.78-2.19)
[2024-10-20 15:41] LABS: Thyroid Stimulating Hormone 2.040 uIU/mL (0.465-4.680)
[2024-10-20 16:16] LABS: Vitamin B12 431.0 pg/mL (239-931)
== END 2024-10-20 13:16 | disposition home or self-care (01) ==
LOC: ANHLAB 13:16
PROVIDERS: PCP Family Medicine; Visit Provider Student in an Organized Health Care Education/Training Program
DX: F41.9 Anxiety disorder, unspecified (principal); K21.9 Gastro-esophageal reflux disease without esophagitis; K58.9 Irritable bowel syndrome, unspecified; M25.50 Pain in unspecified joint; R53.83 Other fatigue; E55.9 Vitamin D deficiency, unspecified; Z13.220 Encounter for screening for lipoid disorders
CPT/HCPCS: 36415; 80053; 80061; 82306; 82607; 82746; 84439; 84443; 85025; 85652; 86038; 86039; 86200; 86430

== ENCOUNTER 2025-02-11 15:08 | Outpatient (CLI) | payer MEDICARE, SELFPAY ==
[2025-02-11 16:18] LABS: Alanine Aminotransferase 18 U/L (6-35); Albumin Level 4.1 g/dL (3.5-5.1); Alkaline Phosphatase 77 U/L (38-126); Anion Gap 6 mmol/L (4-12); Aspartate Amino Transferase 24 U/L (14-36); Bilirubin,Total 0.3 mg/dL (0.2-1.3); Blood Urea Nitrogen 13 mg/dL (7-17); Calcium 8.7 mg/dL (8.4-10.2); Carbon Dioxide 25 mmol/L (22-30); Chloride 106 mmol/L (98-107); Estimated Glomerular Filt Rate > 60; Glucose 91 mg/dL (65-110); Potassium 3.9 mmol/L (3.4-5.0); Sodium 137 mmol/L (137-145); Total Protein 7.3 g/dL (6.3-8.2)
--- OUTSIDE RECORDS SUMMARY | 2025-02-11 17:18 | XMS_ITS | Clinical Summary ---
Author Organization [facility] Address [address] [place] [address] Care Team Providers Care Mds Coordinator Name Role Phone Tanya Dorsey MD Primary Care Provider [phone] Social History Tobacco Use Types Packs/Day Years [...] Screening wi th HPV 2008 COVID-19 Vaccine (2024-2 6 season) 2024 Influenza Adult (#1) 2025 Mammogram Screening 04/14/2026 04/14/2024, 04/06/2023, 12/30/2021 Hepatitis A Vaccines Aged Out No long er eligible based on patient's age to complete this topic Meningococcal B Vaccine Aged Out No l [...] ADAM STEFFANIE DIGI Routine 04/14/2024 1:12 PM AUTOMOTIVE SERVICE ASSISTANT Encounter for screening mammogram for malignant neoplasm of breast from Last 3 Months or Most Recently Relevant to Health Maintenance Results * MG SCREENING W ADAM STEFFANIE DIGI (04/14/2024 1:12 PM AUTOMOTIVE SERVICE ASSISTANT) Anatomical Region Laterality Modality Breast Bilateral Mammography 04/14/2024 1:40 PM AUTOMOTIVE SERVICE ASSISTANT Impressions 04/14/2024 1:41 PM AUTOMOTIVE SERVICE ASSISTANT ===== IMPRESSION: ===== 1. Stable mammographic appearance with no new findings to suggest malignancy in either breast. Assessment: ACR BI-RADS 1 - NEGATIVE Recommendation: 1:Routine Screening Bilateral Comments: Ordered By: CARLOS JONES Interpreted By: Dustin Lucas MD, 04/14/2024 1:40 PM Narrative 04/14/2024 1:41 PM AUTOMOTIVE SERVICE ASSISTANT [facility] [place] [address] Examination: Digital bilateral screening mammogram with 3D [...] calcifications in either breast to suggest malignancy. Carlos Chamberse Galo REGULATORY MANAGER MAMMO Final Result from Last 3 Months or Most Recently Relevant to Health Maintenance Insurance MEDICARE Care Teams Mds Coordinator Relationship Specialty Start Date End Date Tanya Dorsey MD [address] [place] [address] PCP - General FAMILY PRACTICE 11/08/21
== END 2025-02-11 15:09 | disposition home or self-care (01) ==
LOC: ANHLAB 15:10
PROVIDERS: PCP Family Medicine Adolescent Medicine
DX: E78.2 Mixed hyperlipidemia (principal)
CPT/HCPCS: 36415; 80053